=== PATIENT | female | born 1940 | race Two or more races ===

== ENCOUNTER → 2016-06-06 | Outpatient (CLI) | payer MEDICARE, OTHER ==
[~2016-06-06] MED LIST: ASPI81CH43; ATO40T; GLYB5TAB66; LISI-709; SITA50TA13; VERA240T
[2016-06-06 11:23] LABS: Basophils # (auto) 0 uL; Basophils % (auto) 0.6 % (0.0-2.0); Eosinophils # (auto) 0.1 uL; Eosinophils % (auto) 1.3 % (0.0-7.0); Hemoglobin 12.5 g/dL (12.2-16.2); Lymphocytes # (auto) 1.6 uL; Lymphocytes % (auto) 23.3 % (10.0-50.0); Mean Corpuscular Hemoglobin 28.6 pg (28.0-32.0); Mean Corpuscular Hgb Conc. 32.9 g/dL (32.0-36.0); Mean Corpuscular Volume 86.9 fL (80.0-100.0); Mean Platelet Volume 7.9 fL (7.4-10.4); Monocytes # (auto) 0.3 uL; Monocytes % (auto) 4.8 % (0.0-12.0); Neutrophils # (auto) 4.7 uL; Platelet Count (auto) 307 10^3/uL (140-450); Red Cell Distribution Width 14.2 % (11.6-16.0); White Blood Cell 6.7 10^3/uL (4.4-10.8)
== END | disposition home or self-care (01) ==
LOC: LAB 10:39
PROVIDERS: ATTEND Internal Medicine
DX: E11.9 Type 2 diabetes mellitus without complications (principal)
CPT/HCPCS: 36415; 82607; 83036; 83540; 85025; 86160; 86225; 86235; 86376; 86431

== ENCOUNTER → 2016-11-01 | Outpatient (CLI) | payer MEDICARE, OTHER, BC ==
[2016-11-01 11:53] LABS: Albumin 3.8 g/dL (3.4-5.0); BUN/Creatinine Ratio 32.1; Bilirubin, Total 0.3 mg/dL (0.2-1.0); Calcium 8.9 mg/dL (8.5-10.1); Potassium 3.8 mmol/L (3.5-5.1); Total Protein 7.1 g/dL (6.4-8.2)
== END | disposition home or self-care (01) ==
LOC: LAB 09:31
PROVIDERS: ATTEND Internal Medicine
DX: E11.9 Type 2 diabetes mellitus without complications (principal); I10 Essential (primary) hypertension
CPT/HCPCS: 36415; 80053; 83036

== ENCOUNTER → 2017-06-20 | Outpatient (CLI) | payer MEDICARE, OTHER, BC ==
[2017-06-20 10:14] LABS: Basophils # (auto) 0.1 uL; Basophils % (auto) 0.7 % (0.0-2.0); Eosinophils # (auto) 0 uL; Eosinophils % (auto) 0.7 % (0.0-7.0); Hematocrit 41.5 % (36.0-46.0); Hemoglobin 13.6 g/dL (12.2-16.2); Lymphocytes # (auto) 1.5 uL; Lymphocytes % (auto) 20.8 % (10.0-50.0); Mean Corpuscular Hemoglobin 28.5 pg (28.0-32.0); Mean Corpuscular Hgb Conc. 32.8 g/dL (32.0-36.0); Mean Corpuscular Volume 86.9 fL (80.0-100.0); Monocytes # (auto) 0.4 uL; Monocytes % (auto) 5.1 % (0.0-12.0); Neutrophils # (auto) 5.1 uL; Neutrophils % (auto) 72.7 % (37.0-80.0); Nucleated Red Blood Cells % 0.1 %; Platelet Count (auto) 296 10^3/uL (140-450); Red Blood Cells 4.77 10^6/uL (4.0-5.20); Red Cell Distribution Width 14.9 % (11.8-14.3)
[2017-06-20 10:21] LABS: Urine Bacteria NONE SEEN /hpf (None Seen); Urine Blood Negative /uL (Negative); Urine Mucus FEW (None Seen); Urine Specific Gravity 1.017 (1.001-1.035); Urine WBC 1 /hpf (0 - 5)
[2017-06-20 11:16] LABS: Albumin 4.2 g/dL (3.4-5.0); BUN/Creatinine Ratio 22.2; Bilirubin, Total 0.4 mg/dL (0.2-1.0); Calcium 9.5 mg/dL (8.5-10.1); Free T4 (Free Thyroxine) 1.32 ng/dL (0.89-1.76); Potassium 3.9 mmol/L (3.5-5.1); Total Protein 7.8 g/dL (6.4-8.2)
== END | disposition home or self-care (01) ==
LOC: LAB 09:52
PROVIDERS: ATTEND Internal Medicine
DX: Z12.11 Encounter for screening for malignant neoplasm of colon (principal); I10 Essential (primary) hypertension; E11.9 Type 2 diabetes mellitus without complications
CPT/HCPCS: 36415; 80053; 80061; 81001; 82043; 82607; 83036; 84439; 84443; 85025; 85652

== ENCOUNTER → 2018-05-13 | Outpatient (CLI) | payer MEDICARE, OTHER ==
[2018-05-13 10:47] LABS: Albumin 4.2 g/dL (3.4-5.0); Calcium 9.7 mg/dL (8.5-10.1)
[2018-05-13 10:51] LABS: BUN/Creatinine Ratio 26.6; Bilirubin, Total 0.4 mg/dL (0.2-1.0); Total Protein 7.7 g/dL (6.4-8.2)
== END | disposition home or self-care (01) ==
LOC: LAB 10:14
PROVIDERS: ATTEND Internal Medicine
DX: E11.9 Type 2 diabetes mellitus without complications (principal); E78.5 Hyperlipidemia, unspecified
CPT/HCPCS: 36415; 80053; 80061; 83036

== ENCOUNTER 2018-06-03 20:14 | Emergency (ER) | payer MEDICARE, OTHER ==
[~2018-06-03] VITALS: Ht 160 cm; Wt 67.1 kg
[2018-06-03 21:02] LABS: Basophils # (auto) 0 uL; Basophils % (auto) 0.7 % (0.0-2.0); Eosinophils # (auto) 0.1 uL; Eosinophils % (auto) 0.9 % (0.0-7.0); Hemoglobin 12.6 g/dL (12.2-16.2); Lymphocytes # (auto) 1.4 uL; Lymphocytes % (auto) 20.1 % (10.0-50.0); Mean Corpuscular Hgb Conc. 33.2 g/dL (32.0-36.0); Mean Corpuscular Volume 87.3 fL (80.0-100.0); Monocytes # (auto) 0.4 uL; Monocytes % (auto) 5.4 % (0.0-12.0); Neutrophils # (auto) 5.2 uL; Neutrophils % (auto) 72.9 % (37.0-80.0); Platelet Count (auto) 283 10^3/uL (140-450); Red Blood Cells 4.35 10^6/uL (4.0-5.20); Red Cell Distribution Width 14.9 % (11.8-14.3); White Blood Cell 7.2 10^3/uL (4.4-10.8)
[2018-06-03 21:14] LABS: INR 0.94 (0.9-1.15); Partial Thromboplastin Time 28.5 sec (23.78-33.04); Prothrombin Time 10.1 sec (9.27-12.13)
[2018-06-03 21:21] LABS: Alanine Aminotransferase 29 U/L (13-56); Amylase 36 U/L (25-115); Anion Gap 8 (5-15); Aspartate Aminotransferase 25 U/L (15-37); BUN/Creatinine Ratio 17.4; Blood Urea Nitrogen 16 mg/dL (7-18); Calcium 8.9 mg/dL (8.5-10.1); Carbon Dioxide 24 mmol/L (21-32); Chloride 107 mmol/L (98-107); GFR African American 76 mL/min; GFR Non-African American 63 mL/min; Glucose 296 mg/dL (74-106); Lipase 51 U/L (73-393); Magnesium 1.9 mg/dL (1.6-2.6); Potassium 3.6 mmol/L (3.5-5.1); Sodium 139 mmol/L (136-145)
[2018-06-03 21:26] LABS: Alkaline Phosphatase 98 U/L (45-117); Bilirubin, Total 0.4 mg/dL (0.2-1.0); Total Protein 7.5 g/dL (6.4-8.2)
[2018-06-03 22:17] LABS: Urine Bacteria FEW /hpf (None Seen); Urine Blood Negative /uL (Negative); Urine Specific Gravity 1.026 (1.001-1.035); Urine WBC 2 /hpf (0 - 5)
[2018-06-04 00:59] VITALS: BP 139/78
== END 2018-06-04 03:22 | disposition left against medical advice (07) ==
LOC: ER 20:18
DX: R10.31 Right lower quadrant pain (principal); Z53.21 Procedure and treatment not carried out due to patient leaving prior to being seen by health care provider
CPT/HCPCS: 36415; 71046; 74176; 80053; 81001; 82150; 82962; 83690; 83735; 84484; 85025; 85610; 85730; 93005

== ENCOUNTER → 2018-06-09 | Outpatient (CLI) | payer MEDICARE, OTHER ==
[2018-06-09 12:29] LABS: Basophils # (auto) 0 uL; Basophils % (auto) 0.6 % (0.0-2.0); Eosinophils # (auto) 0.1 uL; Eosinophils % (auto) 1.2 % (0.0-7.0); Hemoglobin 12.8 g/dL (12.2-16.2); Lymphocytes # (auto) 1.2 uL; Lymphocytes % (auto) 18.2 % (10.0-50.0); Mean Corpuscular Hemoglobin 28.8 pg (28.0-32.0); Mean Corpuscular Hgb Conc. 32.7 g/dL (32.0-36.0); Mean Corpuscular Volume 87.9 fL (80.0-100.0); Monocytes # (auto) 0.4 uL; Monocytes % (auto) 5.9 % (0.0-12.0); Neutrophils # (auto) 4.8 uL; Neutrophils % (auto) 74.1 % (37.0-80.0); Nucleated Red Blood Cells % 0.1 %; Platelet Count (auto) 266 10^3/uL (140-450); Red Blood Cells 4.44 10^6/uL (4.0-5.20); Red Cell Distribution Width 14.3 % (11.8-14.3); White Blood Cell 6.5 10^3/uL (4.4-10.8)
[2018-06-09 12:46] LABS: Albumin 4.3 g/dL (3.4-5.0); Calcium 9.7 mg/dL (8.5-10.1); Potassium 4.2 mmol/L (3.5-5.1)
[2018-06-09 12:48] LABS: Bilirubin, Total 0.5 mg/dL (0.2-1.0); Total Protein 7.6 g/dL (6.4-8.2)
== END | disposition home or self-care (01) ==
LOC: LAB 11:24
PROVIDERS: ATTEND Internal Medicine
DX: R10.84 Generalized abdominal pain (principal)
CPT/HCPCS: 36415; 80053; 85025; 85652

== ENCOUNTER → 2018-08-01 | Day surgery (SDC) | payer MEDICARE, OTHER ==
[2018-07-29 11:08] LABS: Basophils # (auto) 0.1 uL; Basophils % (auto) 1.1 % (0.0-2.0); Eosinophils # (auto) 0.1 uL; Eosinophils % (auto) 1.4 % (0.0-7.0); Hematocrit 40.5 % (36.0-46.0); Hemoglobin 13.4 g/dL (12.2-16.2); Lymphocytes # (auto) 1.7 uL; Lymphocytes % (auto) 21.2 % (10.0-50.0); Mean Corpuscular Hemoglobin 28.9 pg (28.0-32.0); Mean Corpuscular Hgb Conc. 33.1 g/dL (32.0-36.0); Mean Corpuscular Volume 87.3 fL (80.0-100.0); Monocytes # (auto) 0.5 uL; Monocytes % (auto) 6.9 % (0.0-12.0); Neutrophils # (auto) 5.5 uL; Neutrophils % (auto) 69.4 % (37.0-80.0); Platelet Count (auto) 275 10^3/uL (140-450); Red Blood Cells 4.63 10^6/uL (4.0-5.20); Red Cell Distribution Width 14.1 % (11.8-14.3); White Blood Cell 7.9 10^3/uL (4.4-10.8)
[2018-07-29 11:26] LABS: INR 0.93 (0.9-1.15); Partial Thromboplastin Time 28.9 sec (23.64-32.05)
[~2018-08-01] VITALS: Ht 160 cm; Wt 64.9 kg
[~2018-08-01] MED LIST changes: +LIDOCAINE VISCOUS 2% 15ML UD ONE; -LISI-709; +LOSA25TA40 PO; +MIDAZOLAM HCL 5 MG/ML-1ML VIAL ONE; +SODIUM CHLORIDE LOCK 10 ML ONE; +diphenhdrAMINE HCL 50 MG/1 ML VL ONE; +fentaNYL CITRATE 100 MCG/2 ML VL ONE
[2018-08-01 11:27] VITALS: BP 115/79
== END | disposition home or self-care (01) ==
LOC: GI 09:03
PROVIDERS: ATTEND Internal Medicine Gastroenterology
DX: K29.50 Unspecified chronic gastritis without bleeding (principal); I10 Essential (primary) hypertension; E11.9 Type 2 diabetes mellitus without complications; M19.90 Unspecified osteoarthritis, unspecified site; Z79.84 Long term (current) use of oral hypoglycemic drugs; Z79.899 Other long term (current) drug therapy; Z98.891 History of uterine scar from previous surgery; Z96.643 Presence of artificial hip joint, bilateral; Z98.890 Other specified postprocedural states
CPT/HCPCS: 36415; 43239; 85025; 85610; 85730; J1200; J2250; J3010; J7030

== ENCOUNTER → 2018-08-19 | Outpatient (CLI) | payer MEDICARE, BC, OTHER ==
[~2018-08-19] MED LIST changes: -LIDOCAINE VISCOUS 2% 15ML UD ONE; -MIDAZOLAM HCL 5 MG/ML-1ML VIAL ONE; -SODIUM CHLORIDE LOCK 10 ML ONE; -diphenhdrAMINE HCL 50 MG/1 ML VL ONE; -fentaNYL CITRATE 100 MCG/2 ML VL ONE
== END | disposition home or self-care (01) ==
LOC: LAB 11:39
PROVIDERS: ATTEND Internal Medicine Gastroenterology
DX: Z01.812 Encounter for preprocedural laboratory examination (principal)
CPT/HCPCS: 36415; 82565; 84520

== ENCOUNTER → 2018-10-02 | Outpatient (CLI) | payer MEDICARE, BC ==
[~2018-10-02] MED LIST changes: +LOSA25TA38 PO; -LOSA25TA40 PO
== END | disposition home or self-care (01) ==
LOC: XY 08:22
PROVIDERS: ATTEND Internal Medicine Gastroenterology
DX: R10.10 Upper abdominal pain, unspecified (principal); G24.9 Dystonia, unspecified
CPT/HCPCS: 78226; A9537

== ENCOUNTER 2019-01-07 10:43 | Inpatient (IN) | payer MEDICARE, OTHER ==
[2018-12-15 13:53] LABS: Basophils # (auto) 0.1 uL; Basophils % (auto) 0.8 % (0.0-2.0); Eosinophils # (auto) 0.1 uL; Eosinophils % (auto) 0.8 % (0.0-7.0); Hematocrit 38.3 % (36.0-46.0); Hemoglobin 12.9 g/dL (12.2-16.2); Lymphocytes # (auto) 2.1 uL; Lymphocytes % (auto) 26.2 % (10.0-50.0); Mean Corpuscular Hemoglobin 29.4 pg (28.0-32.0); Mean Corpuscular Hgb Conc. 33.7 g/dL (32.0-36.0); Mean Corpuscular Volume 87.2 fL (80.0-100.0); Monocytes # (auto) 0.5 uL; Neutrophils # (auto) 5.3 uL; Neutrophils % (auto) 66.2 % (37.0-80.0); Platelet Count (auto) 258 10^3/uL (140-450); Red Cell Distribution Width 14.1 % (11.8-14.3)
[2018-12-15 14:00] LABS: Urine Bacteria NONE SEEN /hpf (None Seen); Urine Blood Negative /uL (Negative); Urine Mucus FEW (None Seen); Urine Specific Gravity 1.015 (1.001-1.035); Urine WBC 2 /hpf (0 - 5)
[2018-12-15 14:04] LABS: Albumin 4.2 g/dL (3.4-5.0); Calcium 9.1 mg/dL (8.5-10.1); Potassium 3.8 mmol/L (3.5-5.1)
[2018-12-15 14:07] LABS: BUN/Creatinine Ratio 29.2; Bilirubin, Total 0.4 mg/dL (0.2-1.0); Total Protein 7.5 g/dL (6.4-8.2)
[2018-12-15 14:09] LABS: INR 0.93 (0.9-1.15); Partial Thromboplastin Time 29.7 sec (23.64-32.05)
[2019-01-05 11:34] LABS: Basophils # (auto) 0.1 uL; Basophils % (auto) 0.8 % (0.0-2.0); Eosinophils # (auto) 0 uL; Eosinophils % (auto) 0.5 % (0.0-7.0); Hemoglobin 12.8 g/dL (12.2-16.2); Lymphocytes # (auto) 1.3 uL; Lymphocytes % (auto) 17.4 % (10.0-50.0); Mean Corpuscular Hemoglobin 29.2 pg (28.0-32.0); Mean Corpuscular Hgb Conc. 33.6 g/dL (32.0-36.0); Mean Corpuscular Volume 86.9 fL (80.0-100.0); Monocytes # (auto) 0.4 uL; Monocytes % (auto) 5.2 % (0.0-12.0); Neutrophils # (auto) 5.8 uL; Neutrophils % (auto) 76.1 % (37.0-80.0); Nucleated Red Blood Cells % 0.1 %; Platelet Count (auto) 272 10^3/uL (140-450); Red Blood Cells 4.37 10^6/uL (4.0-5.20); Red Cell Distribution Width 13.9 % (11.8-14.3); White Blood Cell 7.6 10^3/uL (4.4-10.8)
[2019-01-05 11:39] LABS: Urine Bacteria NONE SEEN /hpf (None Seen); Urine Blood Negative /uL (Negative); Urine Specific Gravity 1.006 (1.001-1.035); Urine WBC <1 /hpf (0 - 5)
[2019-01-05 11:51] LABS: INR 0.95 (0.9-1.15); Partial Thromboplastin Time 28.8 sec (23.64-32.05)
[2019-01-05 12:32] LABS: Albumin 4.3 g/dL (3.4-5.0); BUN/Creatinine Ratio 28.1; Calcium 9.3 mg/dL (8.5-10.1); Potassium 3.7 mmol/L (3.5-5.1)
[2019-01-05 12:35] LABS: Bilirubin, Total 0.5 mg/dL (0.2-1.0); Total Protein 7.6 g/dL (6.4-8.2)
[~2019-01-07] VITALS: Ht 160 cm; Wt 66.1 kg
[2019-01-07] MEDS ORDERED: ceFAZolin 1GM/50ML 50 ML IV ONE (10:55)
[2019-01-07] MEDS: POVIDONE IODINE 5% TOPICAL CREAM TOP ONE ×2 (12:29→13:41)
[2019-01-07] MEDS ORDERED: ONDANSETRON HCL 4 MG/2 ML VIAL IV PRN ×2 (12:30→14:15)
[2019-01-07] MEDS ORDERED: MORPHINE SULFATE 4 MG/ML SYR/VIAL IV PRN (12:30)
[2019-01-07] MEDS ORDERED: LABETALOL HCL 5 MG/ML 4ML SYRINGE IV PRN (12:30)
[2019-01-07] MEDS ORDERED: ePHEDrine SULFATE 50 MG/ML AMP IV PRN (12:30)
[2019-01-07] MEDS ORDERED: KETOROLAC TROMETH 30 MG/ML 1ML VIAL IV ONE (12:30)
[2019-01-07] MEDS ORDERED: SUCCINYLCHOLINE CHLORIDE 20 MG/ML 10ML VIAL IV ONE (12:43)
[2019-01-07] MEDS ORDERED: MEPERIDINE HCL (25 MG/ML) 1ML VIAL ONE (12:43)
[2019-01-07] MEDS ORDERED: fentaNYL CITRATE 100 MCG/2 ML VL ONE (12:44)
[2019-01-07] MEDS ORDERED: MIDAZOLAM HCL 1MG/1ML-2 ML VIAL ONE (12:44)
[2019-01-07] MEDS ORDERED: ETOMIDATE (2MG/ML) 20ML VIAL IV ONE (14:02)
[2019-01-07] MEDS ORDERED: DexAMETHasone SOD PHOS 10MG/1ML VIAL INJ ONE (14:02)
[2019-01-07] MEDS: HYDROmorphone HCL 2 MG/ML VL IV PRN ×2 (14:14→14:26)
[2019-01-07] MEDS ORDERED: MORPHINE SULF INJ 2 MG/ML SYRINGE 1ML IV PRN (14:15)
[2019-01-07] MEDS ORDERED: DEXTROSE (50%) 50ML SYRG IV PRN (14:15)
[2019-01-07] MEDS ORDERED: NEOSTIGMINE 1 MG/ML INJ (10mg/10ML VIAL) IM ONE (16:19)
[2019-01-07] MEDS ORDERED: GLYCOPYRROLATE 0.2 MG/ML 1ML VIAL IV ONE (16:19)
[2019-01-07] MEDS ORDERED: PHENYLEPHRINE HCL 10 MG/ML VL IV ONE (16:19)
[2019-01-07] MEDS ORDERED: ceFAZolin 1GM VL IV ONE (16:19)
[2019-01-07 16:34] VITALS: BP 89/51
[2019-01-07] MEDS: SODIUM CHLORIDE 0.9% 1,000 ML IV SCH (16:42)
[2019-01-07] MEDS: InsuLIN REG 1unit/0.01ml Soln (100units/ml) SC SCH ×2 (16:54→21:21)
[2019-01-07] MEDS: ACCU-CHEK COMFORT CURVE STRIP VI SCH ×2 (16:55→21:21)
--- NOTE | 2019-01-07 20:00 | NUR ---
Opening Shift Note Assumed care of patient, awake and alert. No S/S of distress/SOB or pain. Instructed on POC and to call for assist PRN, will continue to monitor for changes Q1hr and PRN. Dressing is clean dry and intact. Abdominal binder in place and patient tolerating well.
[2019-01-07 22:00] VITALS: BP 97/59
[2019-01-08] MEDS: HYDROcodone-ACET 5/325MG TAB PO PRN ×2 (02:46→21:23)
[2019-01-08] MEDS: SODIUM CHLORIDE 0.9% 1,000 ML IV SCH (03:35)
[2019-01-08 05:00] VITALS: BP 119/74
[2019-01-08] MEDS: ACCU-CHEK COMFORT CURVE STRIP VI SCH ×4 (06:26→21:22)
[2019-01-08] MEDS: InsuLIN REG 1unit/0.01ml Soln (100units/ml) SC SCH ×4 (06:27→21:22)
[2019-01-08 06:43] LABS: Basophils # (auto) 0 uL; Basophils % (auto) 0.1 % (0.0-2.0); Eosinophils # (auto) 0 uL; Hematocrit 34.2 % (36.0-46.0); Hemoglobin 11.6 g/dL (12.2-16.2); Lymphocytes % (auto) 9.4 % (10.0-50.0); Mean Corpuscular Hemoglobin 29.7 pg (28.0-32.0); Mean Corpuscular Volume 87.3 fL (80.0-100.0); Monocytes # (auto) 0.5 uL; Monocytes % (auto) 4.6 % (0.0-12.0); Neutrophils # (auto) 9.2 uL; Neutrophils % (auto) 85.9 % (37.0-80.0); Platelet Count (auto) 249 10^3/uL (140-450); Red Blood Cells 3.91 10^6/uL (4.0-5.20); Red Cell Distribution Width 14.1 % (11.8-14.3); White Blood Cell 10.7 10^3/uL (4.4-10.8)
[2019-01-08 06:49] LABS: Albumin 3.6 g/dL (3.4-5.0); BUN/Creatinine Ratio 36.2; Calcium 8.5 mg/dL (8.5-10.1); Potassium 4.1 mmol/L (3.5-5.1)
[2019-01-08 06:51] LABS: Bilirubin, Total 0.4 mg/dL (0.2-1.0); Total Protein 6.4 g/dL (6.4-8.2)
[2019-01-08 08:00] VITALS: BP 115/65
[2019-01-08 09:00] VITALS: BP 115/65
[2019-01-08 12:38] VITALS: BP 107/66
[2019-01-08 22:00] VITALS: BP 130/73
--- NOTE | 2019-01-09 03:20 | NUR ---
PT CARE RESUMED REPORT RECEIVED FROM VENITA RN, PT CURRENTLY SLEEPING, BREATHING EVEN AND UNLABORED, CURRENTLY ON ROOM AIR, EASILY AWAKENED VIA VERBAL STIMULI, NO CURRENT C/O PAIN OR ANY OTHER DISCOMFORT, CALL LIGHT WITHIN REACH, BED ALARM ON, CONT CARE
[2019-01-09 05:00] VITALS: BP 116/62
[2019-01-09] MEDS: InsuLIN REG 1unit/0.01ml Soln (100units/ml) SC SCH ×2 (07:00→11:30)
[2019-01-09] MEDS: ACCU-CHEK COMFORT CURVE STRIP VI SCH ×2 (07:10→11:47)
[2019-01-09 08:22] VITALS: BP 138/70
[2019-01-09] MEDS: HYDROcodone-ACET 5/325MG TAB PO PRN (09:42)
[2019-01-09 13:00] VITALS: BP 126/70
--- NOTE | 2019-01-09 16:27 | NUR ---
DISCHARGE Discharge instructions given as ordered. Encourage to follow up with PMD as instructed. Appointment made to follow up with Dr Ferrara 01/19/2019 @ 1:30, address and contact information provided. All questions and concerns addressed. Patient verbalized understanding. Medication reconciliation form completed and copy given to patient. IV removed with catheter intact, pressure dressing applied. Patient taken to vehicle via wheelchair with all personal belongings, accompanied by staff and family member. No distress noted at time of departure.
== END 2019-01-09 16:20 | disposition home or self-care (01) | DRG 419 ==
LOC: SUR 10:43 → TELE-WESTW 15:25 → WEST WING 19:20
PROVIDERS: ADMIT Surgery; ATTEND Internal Medicine
PROC: 0FT44ZZ Resection of Gallbladder, Percutaneous Endoscopic Approach (ICD-10-PCS; principal; 2019-01-07 12:45)
DX: K80.64 Calculus of gallbladder and bile duct with chronic cholecystitis without obstruction (principal); K82.8 Other specified diseases of gallbladder; E11.9 Type 2 diabetes mellitus without complications; I10 Essential (primary) hypertension; E78.5 Hyperlipidemia, unspecified; I25.10 Atherosclerotic heart disease of native coronary artery without angina pectoris; K43.9 Ventral hernia without obstruction or gangrene; M06.9 Rheumatoid arthritis, unspecified; Z79.899 Other long term (current) drug therapy
CPT/HCPCS: 36415; 80053; 81001; 82962; 83036; 85025; 85610; 85730; 86850; 86900; 86901; G0378; J0330; J0690; J1100; J1815; J1885; J2250; J2405

== ENCOUNTER → 2019-09-02 | Outpatient (CLI) | payer MEDICARE, BC ==
[~2019-09-02] MED LIST changes: -ATO40T
[2019-09-02 10:53] LABS: Basophils # (auto) 0.1 10 ^3/uL (0-0.2); Basophils % (auto) 0.9 % (0.0-2.0); Eosinophils # (auto) 0.1 10 ^3/uL (0-0.8); Eosinophils % (auto) 1.3 % (0.0-7.0); Hematocrit 35.8 % (36.0-46.0); Hemoglobin 11.8 g/dL (12.2-16.2); Lymphocytes # (auto) 1.3 10 ^3/uL (0.4-5.4); Lymphocytes % (auto) 19.9 % (10.0-50.0); Mean Corpuscular Hemoglobin 28.4 pg (28.0-32.0); Mean Corpuscular Hgb Conc. 33.1 g/dL (32.0-36.0); Mean Corpuscular Volume 85.7 fL (80.0-100.0); Monocytes # (auto) 0.4 10 ^3/uL (0-1.3); Monocytes % (auto) 6.3 % (0.0-12.0); Neutrophils # (auto) 4.6 10 ^3/uL (1.6-8.6); Neutrophils % (auto) 71.6 % (37.0-80.0); Platelet Count (auto) 305 10^3/uL (140-450); Red Blood Cells 4.17 10^6/uL (4.0-5.20); Red Cell Distribution Width 14.5 % (11.8-14.3); White Blood Cell 6.4 10^3/uL (4.4-10.8)
[2019-09-02 11:00] LABS: Urine Bacteria NONE SEEN /hpf (None Seen); Urine Blood Negative /uL (Negative); Urine Mucus FEW (None Seen); Urine Specific Gravity 1.027 (1.001-1.035); Urine WBC 2 /hpf (0 - 5)
[2019-09-02 11:35] LABS: Free T4 (Free Thyroxine) 1.13 ng/dL (0.89-1.76)
[2019-09-02 11:56] LABS: Albumin 3.9 g/dL (3.4-5.0); Bilirubin, Total 0.5 mg/dL (0.2-1.0); Calcium 9.2 mg/dL (8.5-10.1); Total Protein 7.6 g/dL (6.4-8.2)
[2019-09-02 12:02] LABS: BUN/Creatinine Ratio 38.3
== END | disposition home or self-care (01) ==
LOC: LAB 10:25
PROVIDERS: ATTEND Internal Medicine
DX: I10 Essential (primary) hypertension (principal); E11.9 Type 2 diabetes mellitus without complications
CPT/HCPCS: 36415; 80053; 80061; 81001; 82043; 82607; 83036; 84439; 84443; 85025; 85652

== ENCOUNTER → 2019-10-07 | Outpatient (CLI) | payer MEDICARE, BC ==
[2019-10-07 14:54] LABS: Basophils # (auto) 0 10 ^3/uL (0-0.2); Basophils % (auto) 0.6 % (0.0-2.0); Eosinophils # (auto) 0.1 10 ^3/uL (0-0.8); Hemoglobin 11.9 g/dL (12.2-16.2); Lymphocytes # (auto) 1.7 10 ^3/uL (0.4-5.4); Lymphocytes % (auto) 21.5 % (10.0-50.0); Mean Corpuscular Hemoglobin 28.7 pg (28.0-32.0); Monocytes # (auto) 0.4 10 ^3/uL (0-1.3); Monocytes % (auto) 5.7 % (0.0-12.0); Neutrophils # (auto) 5.5 10 ^3/uL (1.6-8.6); Neutrophils % (auto) 71.2 % (37.0-80.0); Nucleated Red Blood Cells % 0.1 %; Platelet Count (auto) 303 10^3/uL (140-450); Red Blood Cells 4.14 10^6/uL (4.0-5.20); Red Cell Distribution Width 14.7 % (11.8-14.3); White Blood Cell 7.7 10^3/uL (4.4-10.8)
[2019-10-07 15:14] LABS: Calcium 9.6 mg/dL (8.5-10.1); Potassium 3.7 mmol/L (3.5-5.1)
[2019-10-07 15:20] LABS: BUN/Creatinine Ratio 25.8; Bilirubin, Total 0.4 mg/dL (0.2-1.0); Total Protein 7.6 g/dL (6.4-8.2)
== END | disposition home or self-care (01) ==
LOC: LAB 14:38
PROVIDERS: ATTEND Internal Medicine
DX: K57.30 Diverticulosis of large intestine without perforation or abscess without bleeding (principal)
CPT/HCPCS: 36415; 80053; 85025; 85652

== ENCOUNTER → 2019-10-20 | Outpatient (CLI) | payer MEDICARE, BC | END | disposition home or self-care (01) | LOC: LAB 13:07 | PROVIDERS: ATTEND Internal Medicine | DX: D64.9 Anemia, unspecified (principal) | CPT/HCPCS: 82270 ==

== ENCOUNTER → 2020-04-29 | Outpatient (CLI) | payer MEDICARE, BC ==
[2020-04-29 10:12] LABS: Basophils # (auto) 0.1 10 ^3/uL (0-0.2); Basophils % (auto) 0.8 % (0.0-2.0); Eosinophils # (auto) 0.1 10 ^3/uL (0-0.8); Eosinophils % (auto) 0.8 % (0.0-7.0); Hematocrit 37.9 % (36.0-46.0); Hemoglobin 12.9 g/dL (12.2-16.2); Lymphocytes # (auto) 1.4 10 ^3/uL (0.4-5.4); Lymphocytes % (auto) 19.7 % (10.0-50.0); Mean Corpuscular Hemoglobin 29.3 pg (28.0-32.0); Mean Corpuscular Volume 86.1 fL (80.0-100.0); Monocytes # (auto) 0.4 10 ^3/uL (0-1.3); Monocytes % (auto) 4.9 % (0.0-12.0); Neutrophils # (auto) 5.4 10 ^3/uL (1.6-8.6); Neutrophils % (auto) 73.8 % (37.0-80.0); Nucleated Red Blood Cells % 0.1 %; Platelet Count (auto) 246 10^3/uL (140-450); Red Cell Distribution Width 14.1 % (11.8-14.3); White Blood Cell 7.3 10^3/uL (4.4-10.8)
== END | disposition home or self-care (01) ==
LOC: LAB 09:54
PROVIDERS: ATTEND Internal Medicine
DX: E11.9 Type 2 diabetes mellitus without complications (principal); D64.9 Anemia, unspecified
CPT/HCPCS: 36415; 82607; 83036; 83540; 83615; 85025

== ENCOUNTER → 2020-07-21 | Outpatient (CLI) | payer MEDICARE, BC ==
[2020-07-21 11:20] LABS: Potassium 4.2 mmol/L (3.5-5.1)
[2020-07-21 11:33] LABS: Albumin 4.1 g/dL (3.4-5.0); BUN/Creatinine Ratio 40.6; Bilirubin, Total 0.4 mg/dL (0.2-1.0); Calcium 9.3 mg/dL (8.5-10.1); Total Protein 7.3 g/dL (6.4-8.2)
== END | disposition home or self-care (01) ==
LOC: LAB 10:17
PROVIDERS: ATTEND Internal Medicine
DX: E11.9 Type 2 diabetes mellitus without complications (principal)
CPT/HCPCS: 36415; 80053; 83036

== ENCOUNTER → 2020-10-27 | Outpatient (CLI) | payer MEDICARE, OTHER ==
[2020-10-27 10:13] LABS: Basophils # (auto) 0.1 10 ^3/uL (0-0.2); Basophils % (auto) 0.8 % (0.0-2.0); Eosinophils # (auto) 0.1 10 ^3/uL (0-0.8); Eosinophils % (auto) 0.8 % (0.0-7.0); Hematocrit 38.1 % (36.0-46.0); Hemoglobin 12.6 g/dL (12.2-16.2); Lymphocytes # (auto) 1.5 10 ^3/uL (0.4-5.4); Lymphocytes % (auto) 21.1 % (10.0-50.0); Mean Corpuscular Hemoglobin 28.6 pg (28.0-32.0); Mean Corpuscular Hgb Conc. 33.2 g/dL (32.0-36.0); Mean Corpuscular Volume 86.1 fL (80.0-100.0); Monocytes # (auto) 0.4 10 ^3/uL (0-1.3); Monocytes % (auto) 5.7 % (0.0-12.0); Neutrophils # (auto) 5.1 10 ^3/uL (1.6-8.6); Neutrophils % (auto) 71.6 % (37.0-80.0); Red Blood Cells 4.43 10^6/uL (4.0-5.20); Red Cell Distribution Width 14.3 % (11.8-14.3); White Blood Cell 7.2 10^3/uL (4.4-10.8)
[2020-10-27 10:19] LABS: Urine Bacteria NONE SEEN /hpf (None Seen); Urine Blood Negative /uL (Negative); Urine Specific Gravity 1.008 (1.001-1.035); Urine WBC <1 /hpf (0 - 5)
[2020-10-27 11:04] LABS: Albumin 4.2 g/dL (3.4-5.0); Potassium 3.9 mmol/L (3.5-5.1)
[2020-10-27 11:14] LABS: Bilirubin, Total 0.4 mg/dL (0.2-1.0); Calcium 9.7 mg/dL (8.5-10.1); Total Protein 7.8 g/dL (6.4-8.2)
== END | disposition home or self-care (01) ==
LOC: LAB 09:59
PROVIDERS: ATTEND Internal Medicine
DX: E11.9 Type 2 diabetes mellitus without complications (principal); I10 Essential (primary) hypertension
CPT/HCPCS: 36415; 80053; 80061; 81001; 82043; 83036; 84439; 84443; 85025; 85652

== ENCOUNTER 2020-11-15 14:46 | Inpatient (IN) | payer MEDICARE, OTHER ==
[~2020-11-15] VITALS: Ht 160 cm; Wt 57.8 kg
[2020-11-15] MEDS ORDERED: HYDROcodone-ACET 5/325MG TAB PO ONE (15:00)
[2020-11-15] MEDS ORDERED: IOHEXOL 350 MG/ML 100ML IJ ONE (15:05)
[2020-11-15 15:35] LABS: Basophils # (auto) 0 10 ^3/uL (0-0.2); Basophils % (auto) 0.3 % (0.0-2.0); Eosinophils # (auto) 0.1 10 ^3/uL (0-0.8); Eosinophils % (auto) 0.7 % (0.0-7.0); Hematocrit 27.5 % (36.0-46.0); Hemoglobin 9.3 g/dL (12.2-16.2); Lymphocytes # (auto) 1.3 10 ^3/uL (0.4-5.4); Lymphocytes % (auto) 12.4 % (10.0-50.0); Mean Corpuscular Hemoglobin 29.3 pg (28.0-32.0); Mean Corpuscular Hgb Conc. 33.8 g/dL (32.0-36.0); Mean Corpuscular Volume 86.7 fL (80.0-100.0); Monocytes # (auto) 0.7 10 ^3/uL (0-1.3); Monocytes % (auto) 6.5 % (0.0-12.0); Neutrophils # (auto) 8.1 10 ^3/uL (1.6-8.6); Neutrophils % (auto) 80.1 % (37.0-80.0); Nucleated Red Blood Cells % 0.1 %; Red Blood Cells 3.18 10^6/uL (4.0-5.20); Red Cell Distribution Width 14.5 % (11.8-14.3); White Blood Cell 10.1 10^3/uL (4.4-10.8)
[2020-11-15 15:52] LABS: Albumin 2.9 g/dL (3.4-5.0); Anion Gap 11 (5-15); Blood Urea Nitrogen 18 mg/dL (7-18); Calcium 9.1 mg/dL (8.5-10.1); Carbon Dioxide 24 mmol/L (21-32); Chloride 102 mmol/L (98-107); Glucose 249 mg/dL (74-106); Potassium 3.8 mmol/L (3.5-5.1); Sodium 137 mmol/L (136-145)
[2020-11-15 16:08] LABS: Alanine Aminotransferase 24 U/L (13-56); Aspartate Aminotransferase 15 U/L (15-37); Bilirubin, Total 0.9 mg/dL (0.2-1.0); GFR African American 128 mL/min; GFR Non-African American 106 mL/min; Total Protein 6.7 g/dL (6.4-8.2)
[2020-11-15 16:42] LABS: Alkaline Phosphatase 86 U/L (45-117)
[2020-11-15] MEDS ORDERED: NITROGLYCERIN 0.4 MG SL TAB SL PRN (18:15)
[2020-11-15] MEDS ORDERED: ONDANSETRON HCL 4 MG/2 ML VIAL IV PRN (18:15)
[2020-11-15] MEDS ORDERED: MORPHINE SULFATE INJECTION 2 MG/ML SYRG IV PRN (18:15)
[2020-11-15] MEDS ORDERED: DEXTROSE (50%) 50ML SYRG IV PRN (18:15)
[2020-11-15] MEDS: MORPHINE SULFATE INJECTION 2 MG/ML SYRG IV PRN (21:28)
[2020-11-15] MEDS: ACCU-CHEK COMFORT CURVE STRIP VI SCH (22:30)
[2020-11-15] MEDS: InsuLIN REG 1unit/0.01ml Soln (100units/ml) SC SCH (22:35)
[2020-11-16 07:12] LABS: Hematocrit 27.5 % (36.0-46.0); Hemoglobin 9.4 g/dL (12.2-16.2)
[2020-11-16] MEDS: ACCU-CHEK COMFORT CURVE STRIP VI SCH ×4 (08:03→22:00)
[2020-11-16] MEDS: InsuLIN REG 1unit/0.01ml Soln (100units/ml) SC SCH ×4 (08:30→22:00)
[2020-11-16] MEDS: LOSARTAN POTASSIUM 25 MG TAB PO SCH (10:00)
[2020-11-16] MEDS: MORPHINE SULFATE INJECTION 2 MG/ML SYRG IV PRN ×2 (12:21→21:46)
[2020-11-16 12:56] LABS: % Iron Saturation 13.9 % (15-50)
[2020-11-16 13:00] LABS: INR 1.01 (0.9-1.15); Partial Thromboplastin Time 24.2 sec (23.6-33.0)
[2020-11-16 21:25] VITALS: BP 128/77
[2020-11-16 22:00] VITALS: BP 128/77
[2020-11-17] VITALS (14 sets, daily range): BP systolic 102–151; BP diastolic 47–88
[2020-11-17] MEDS: InsuLIN REG 1unit/0.01ml Soln (100units/ml) SC SCH ×4 (07:00→21:28)
[2020-11-17] MEDS: ACCU-CHEK COMFORT CURVE STRIP VI SCH ×4 (07:00→21:17)
[2020-11-17 07:25] LABS: Urine Bacteria NONE SEEN /hpf (None Seen); Urine Blood 1+ /uL (Negative); Urine Mucus FEW (None Seen); Urine Specific Gravity 1.026 (1.001-1.035); Urine WBC 5 /hpf (0 - 5)
[2020-11-17] MEDS ORDERED: LOS25T PO (07:47)
[2020-11-17] MEDS ORDERED: HYDR1TAB97 PO (07:47)
[2020-11-17] MEDS: LOSARTAN POTASSIUM 25 MG TAB PO SCH (10:00)
[2020-11-17] MEDS ORDERED: NEOMYCIN-BACITRACIN-POLYM 15GM TOP OINT TOP ONE (11:44)
[2020-11-17] MEDS ORDERED: ceFAZolin 1GM/50ML 100 ML IV ONE (11:57)
[2020-11-17] MEDS ORDERED: BUPIVACAINE 0.25% INJ 50ML VIAL ONE (12:07)
[2020-11-17] MEDS ORDERED: fentaNYL CITRATE 100 MCG/2 ML VL ONE (12:32)
[2020-11-17] MEDS ORDERED: MIDAZOLAM HCL 2MG/2ML 2ml VIAL (1mg/ml) ONE (12:32)
[2020-11-17] MEDS ORDERED: TETRACAINE 1% INJ 2 ML VIAL IJ ONE (12:41)
[2020-11-17] MEDS ORDERED: MORPHINE SULF PF 2 MG/2 ML SYRG ONE (12:48)
[2020-11-17] MEDS ORDERED: ceFAZolin 1GM VL ONE ×2 (13:16→13:46)
[2020-11-17] MEDS ORDERED: DexAMETHasone SOD PHOS 10MG/1ML VIAL INJ IV PRN (14:30)
[2020-11-17] MEDS ORDERED: diphenhdrAMINE HCL 50 MG/1 ML VL IV PRN (14:30)
[2020-11-17] MEDS ORDERED: HYDROmorphone HCL 2 MG/ML VL IV PRN (14:30)
[2020-11-17] MEDS ORDERED: NALOXONE HCL 0.4 MG/ML VIAL IV PRN (14:30)
[2020-11-17] MEDS ORDERED: NALBUPHINE HCL 10 MG/1ml INJECTION SUBCUT ONE (14:30)
[2020-11-17] MEDS ORDERED: ONDANSETRON HCL 4 MG/2 ML VIAL IV PRN (14:30)
[2020-11-17] MEDS: MORPHINE SULFATE INJECTION 2 MG/ML SYRG IV PRN (17:19)
[2020-11-17] MEDS: DOCUSATE SOD 100 MG CAP PO PRN (21:17)
[2020-11-18] VITALS (17 sets, daily range): BP systolic 93–117; BP diastolic 40–66
[2020-11-18] MEDS: ACCU-CHEK COMFORT CURVE STRIP VI SCH ×4 (06:35→21:28)
[2020-11-18] MEDS: InsuLIN REG 1unit/0.01ml Soln (100units/ml) SC SCH ×4 (06:38→21:28)
[2020-11-18 07:18] LABS: Calcium 8.4 mg/dL (8.5-10.1); Potassium 4.1 mmol/L (3.5-5.1)
[2020-11-18 07:20] LABS: BUN/Creatinine Ratio 31.8
[2020-11-18 08:01] LABS: Basophils # (auto) 0.1 10 ^3/uL (0-0.2); Basophils % (auto) 0.6 % (0.0-2.0); Eosinophils # (auto) 0 10 ^3/uL (0-0.8); Eosinophils % (auto) 0.2 % (0.0-7.0); Hematocrit 23.7 % (36.0-46.0); Hemoglobin 8.2 g/dL (12.2-16.2); Lymphocytes # (auto) 1.2 10 ^3/uL (0.4-5.4); Lymphocytes % (auto) 11.4 % (10.0-50.0); Mean Corpuscular Hemoglobin 30.1 pg (28.0-32.0); Mean Corpuscular Hgb Conc. 34.7 g/dL (32.0-36.0); Mean Corpuscular Volume 86.8 fL (80.0-100.0); Monocytes % (auto) 9.3 % (0.0-12.0); Neutrophils # (auto) 8.1 10 ^3/uL (1.6-8.6); Neutrophils % (auto) 78.5 % (37.0-80.0); Nucleated Red Blood Cells % 0.1 %; Red Blood Cells 2.73 10^6/uL (4.0-5.20); Red Cell Distribution Width 14.7 % (11.8-14.3); White Blood Cell 10.3 10^3/uL (4.4-10.8)
[2020-11-18] MEDS: ACETAMINOPHEN 500 MG TAB PO PRN (08:38)
[2020-11-18] MEDS ORDERED: cefTRIAXone 1GM/50ML D5W 50 ML IV ONE (12:00)
[2020-11-18] MEDS: MORPHINE SULFATE INJECTION 2 MG/ML SYRG IV PRN (13:34)
[2020-11-18] MEDS: CLINDAMYCIN 600MG IV 50 ML IV SCH ×2 (13:54→21:27)
[2020-11-18] MEDS ORDERED: SODIUM CHLORIDE 0.9% 1,000 ML IV ONE (15:15)
[2020-11-18] MEDS: HYDROcodone-ACET 5/325MG TAB PO PRN (15:40)
[2020-11-18 16:00] LABS: Urine Bacteria NONE SEEN /hpf (None Seen); Urine Blood 2+ /uL (Negative); Urine Mucus FEW (None Seen); Urine Specific Gravity 1.016 (1.001-1.035); Urine WBC 2 /hpf (0 - 5)
[2020-11-18] MEDS: SODIUM FERR GLUC 62.5MG/5ML 125 MG in SODIUM CHL 0.9% 100 ML IV SCH (17:08)
[2020-11-18] MEDS: cefTRIAXone 1GM/50ML D5W 50 ML IV SCH (21:24)
[2020-11-19] MEDS: HYDROcodone-ACET 5/325MG TAB PO PRN (04:24)
[2020-11-19 05:00] VITALS: BP 107/58
[2020-11-19] MEDS: CLINDAMYCIN 600MG IV 50 ML IV SCH ×3 (05:48→22:07)
[2020-11-19] MEDS: ACCU-CHEK COMFORT CURVE STRIP VI SCH ×4 (06:40→22:08)
[2020-11-19] MEDS: InsuLIN REG 1unit/0.01ml Soln (100units/ml) SC SCH ×4 (06:41→22:20)
[2020-11-19] MEDS: DOCUSATE SOD 100 MG CAP PO PRN (06:41)
[2020-11-19 08:30] VITALS: BP 85/48
[2020-11-19] MEDS ORDERED: cefTRIAXone 1GM/50ML D5W 50 ML IV SCH (09:00)
[2020-11-19 11:51] VITALS: BP 104/58
[2020-11-19] MEDS: cefTRIAXone 1GM/50ML D5W 50 ML IV SCH ×2 (11:51→23:20)
[2020-11-19] MEDS: MORPHINE SULFATE INJECTION 2 MG/ML SYRG IV PRN ×2 (11:52→20:19)
[2020-11-19 13:00] VITALS: BP 114/59
[2020-11-19] MEDS: SODIUM FERR GLUC 62.5MG/5ML 125 MG in SODIUM CHL 0.9% 100 ML IV SCH (14:00)
[2020-11-19] MEDS ORDERED: FUROSEMIDE 20 MG/2 ML VIAL IV ONE (15:00)
[2020-11-19 17:23] VITALS: BP 119/58
[2020-11-19 21:00] VITALS: BP 101/52
[2020-11-20 05:03] VITALS: BP 107/59
[2020-11-20 05:40] LABS: Basophils # (auto) 0 10 ^3/uL (0-0.2); Basophils % (auto) 0.4 % (0.0-2.0); Eosinophils # (auto) 0.1 10 ^3/uL (0-0.8); Eosinophils % (auto) 1.4 % (0.0-7.0); Hematocrit 22.6 % (36.0-46.0); Hemoglobin 7.8 g/dL (12.2-16.2); Lymphocytes % (auto) 12.2 % (10.0-50.0); Mean Corpuscular Hemoglobin 29.7 pg (28.0-32.0); Mean Corpuscular Hgb Conc. 34.5 g/dL (32.0-36.0); Mean Corpuscular Volume 86.1 fL (80.0-100.0); Monocytes # (auto) 0.6 10 ^3/uL (0-1.3); Monocytes % (auto) 6.9 % (0.0-12.0); Neutrophils # (auto) 6.7 10 ^3/uL (1.6-8.6); Neutrophils % (auto) 79.1 % (37.0-80.0); Nucleated Red Blood Cells % 0.1 %; Red Blood Cells 2.63 10^6/uL (4.0-5.20); Red Cell Distribution Width 14.9 % (11.8-14.3); White Blood Cell 8.5 10^3/uL (4.4-10.8)
[2020-11-20 05:51] LABS: Potassium 3.7 mmol/L (3.5-5.1)
[2020-11-20] MEDS: CLINDAMYCIN 600MG IV 50 ML IV SCH ×3 (05:55→21:37)
[2020-11-20 06:03] LABS: BUN/Creatinine Ratio 23.7; Bilirubin, Total 0.4 mg/dL (0.2-1.0); Calcium 8.6 mg/dL (8.5-10.1); Total Protein 5.9 g/dL (6.4-8.2)
[2020-11-20] MEDS: ACCU-CHEK COMFORT CURVE STRIP VI SCH ×4 (07:12→21:37)
[2020-11-20] MEDS: InsuLIN REG 1unit/0.01ml Soln (100units/ml) SC SCH ×4 (07:13→22:00)
[2020-11-20 09:00] VITALS: BP 104/60
[2020-11-20] MEDS ORDERED: FUROSEMIDE 20 MG/2 ML VIAL IV SCH (10:00)
[2020-11-20] MEDS: MORPHINE SULFATE INJECTION 2 MG/ML SYRG IV PRN ×3 (10:44→21:38)
[2020-11-20] MEDS: cefTRIAXone 1GM/50ML D5W 50 ML IV SCH ×2 (10:48→23:00)
[2020-11-20] MEDS: DOCUSATE SOD 100 MG CAP PO PRN (10:53)
[2020-11-20 12:54] VITALS: BP 92/60
[2020-11-20] MEDS: SODIUM FERR GLUC 62.5MG/5ML 125 MG in SODIUM CHL 0.9% 100 ML IV SCH (13:01)
[2020-11-20 17:09] VITALS: BP 126/64
[2020-11-20 20:00] VITALS: BP 108/56
[2020-11-20 23:45] VITALS: BP 108/56
[2020-11-21 05:28] VITALS: BP 118/61
[2020-11-21] MEDS: CLINDAMYCIN 600MG IV 50 ML IV SCH ×3 (05:30→22:12)
[2020-11-21 05:54] LABS: Basophils # (auto) 0.1 10 ^3/uL (0-0.2); Eosinophils # (auto) 0.1 10 ^3/uL (0-0.8); Hematocrit 23.6 % (36.0-46.0); Hemoglobin 8.1 g/dL (12.2-16.2); Mean Corpuscular Hemoglobin 29.6 pg (28.0-32.0); Neutrophils # (auto) 6.6 10 ^3/uL (1.6-8.6); White Blood Cell 8.5 10^3/uL (4.4-10.8)
[2020-11-21 05:57] LABS: Basophils % (auto) 0.8 % (0.0-2.0); Eosinophils % (auto) 1.3 % (0.0-7.0); Lymphocytes % (auto) 12.3 % (10.0-50.0); Mean Corpuscular Hgb Conc. 34.5 g/dL (32.0-36.0); Mean Corpuscular Volume 85.7 fL (80.0-100.0); Monocytes # (auto) 0.6 10 ^3/uL (0-1.3); Monocytes % (auto) 7.4 % (0.0-12.0); Neutrophils % (auto) 78.2 % (37.0-80.0); Red Blood Cells 2.75 10^6/uL (4.0-5.20)
[2020-11-21 06:11] LABS: BUN/Creatinine Ratio 18.4; Calcium 9.1 mg/dL (8.5-10.1); Potassium 3.8 mmol/L (3.5-5.1)
[2020-11-21] MEDS: ACCU-CHEK COMFORT CURVE STRIP VI SCH ×4 (06:55→21:20)
[2020-11-21] MEDS: InsuLIN REG 1unit/0.01ml Soln (100units/ml) SC SCH ×4 (06:55→21:21)
[2020-11-21 09:00] VITALS: BP 123/57
[2020-11-21] MEDS ORDERED: ENOXAPARIN SOD 40 MG/0.4 ML SYRINGE SC SCH (10:00)
[2020-11-21] MEDS: cefTRIAXone 1GM/50ML D5W 50 ML IV SCH ×2 (10:24→21:18)
[2020-11-21] MEDS: POTASSIUM EFFERVESENT TAB 25 MEQ PO SCH (10:24)
[2020-11-21] MEDS: HYDROcodone-ACET 5/325MG TAB PO PRN (10:26)
[2020-11-21] MEDS: DOCUSATE SOD 100 MG CAP PO PRN (10:27)
[2020-11-21] MEDS: MORPHINE SULFATE INJECTION 2 MG/ML SYRG IV PRN ×3 (11:11→22:13)
[2020-11-21] MEDS: FUROSEMIDE 40 MG/4 ML VIAL IV SCH (11:11)
[2020-11-21 13:00] VITALS: BP 107/57
[2020-11-21] MEDS ORDERED: ERGOCALCIFEROL 50,000 UNIT(1.25MG) CAP PO SCH (13:15)
[2020-11-21] MEDS: SODIUM FERR GLUC 62.5MG/5ML 125 MG in SODIUM CHL 0.9% 100 ML IV SCH (16:10)
[2020-11-21 17:00] VITALS: BP_SYST 101; BP_SYST 138; BP_DIAS 50; BP_DIAS 76
[2020-11-21 18:00] VITALS: BP 101/50
[2020-11-21 22:00] VITALS: BP 114/58
[2020-11-22 05:00] VITALS: BP 110/64
[2020-11-22] MEDS: CLINDAMYCIN 600MG IV 50 ML IV SCH ×3 (06:02→23:31)
[2020-11-22] MEDS: ACCU-CHEK COMFORT CURVE STRIP VI SCH ×4 (06:03→22:35)
[2020-11-22 06:05] LABS: Basophils # (auto) 0.1 10 ^3/uL (0-0.2); Eosinophils # (auto) 0.1 10 ^3/uL (0-0.8); Lymphocytes # (auto) 1.2 10 ^3/uL (0.4-5.4); Monocytes # (auto) 0.6 10 ^3/uL (0-1.3); Nucleated Red Blood Cells % 0.1 %
[2020-11-22] MEDS: InsuLIN REG 1unit/0.01ml Soln (100units/ml) SC SCH ×4 (06:07→22:47)
[2020-11-22 06:09] LABS: Basophils % (auto) 1.3 % (0.0-2.0); Hematocrit 22.3 % (36.0-46.0); Hemoglobin 7.9 g/dL (12.2-16.2); Lymphocytes % (auto) 16.8 % (10.0-50.0); Mean Corpuscular Hemoglobin 30.7 pg (28.0-32.0); Mean Corpuscular Hgb Conc. 35.3 g/dL (32.0-36.0); Mean Corpuscular Volume 87.2 fL (80.0-100.0); Monocytes % (auto) 8.6 % (0.0-12.0); Neutrophils % (auto) 71.3 % (37.0-80.0); Red Blood Cells 2.56 10^6/uL (4.0-5.20); Red Cell Distribution Width 15.1 % (11.8-14.3)
[2020-11-22 09:00] VITALS: BP 116/60
[2020-11-22] MEDS: MORPHINE SULFATE INJECTION 2 MG/ML SYRG IV PRN ×2 (09:21→13:35)
[2020-11-22] MEDS: FUROSEMIDE 40 MG/4 ML VIAL IV SCH (09:23)
[2020-11-22] MEDS: DOCUSATE SOD 100 MG CAP PO PRN (09:24)
[2020-11-22] MEDS: POTASSIUM EFFERVESENT TAB 25 MEQ PO SCH (09:24)
[2020-11-22] MEDS: cefTRIAXone 1GM/50ML D5W 50 ML IV SCH ×2 (09:25→22:36)
[2020-11-22] MEDS: ENOXAPARIN SOD 80 MG/0.8ML SYRINGE SC SCH (10:55)
[2020-11-22 13:00] VITALS: BP 118/65
[2020-11-22] MEDS: SODIUM FERR GLUC 62.5MG/5ML 125 MG in SODIUM CHL 0.9% 100 ML IV SCH (15:16)
[2020-11-22 17:00] VITALS: BP 136/65
[2020-11-22 22:00] VITALS: BP 104/59
[2020-11-23] MEDS: MORPHINE SULFATE INJECTION 2 MG/ML SYRG IV PRN ×2 (04:58→09:37)
[2020-11-23 05:00] VITALS: BP 115/64
[2020-11-23] MEDS: ACCU-CHEK COMFORT CURVE STRIP VI SCH ×4 (05:26→22:04)
[2020-11-23] MEDS: CLINDAMYCIN 600MG IV 50 ML IV SCH ×3 (05:26→22:00)
[2020-11-23] MEDS: InsuLIN REG 1unit/0.01ml Soln (100units/ml) SC SCH ×4 (05:38→22:13)
[2020-11-23 09:00] VITALS: BP 109/64
[2020-11-23] MEDS: cefTRIAXone 1GM/50ML D5W 50 ML IV SCH ×2 (09:38→21:28)
[2020-11-23] MEDS: ENOXAPARIN SOD 80 MG/0.8ML SYRINGE SC SCH (09:38)
[2020-11-23] MEDS: POTASSIUM EFFERVESENT TAB 25 MEQ PO SCH (09:38)
[2020-11-23] MEDS: FUROSEMIDE 40 MG/4 ML VIAL IV SCH (09:38)
[2020-11-23 12:03] LABS: Hematocrit 27.3 % (36.0-46.0); Hemoglobin 9.2 g/dL (12.2-16.2)
[2020-11-23] MEDS: ACETAMINOPHEN 500 MG TAB PO PRN (12:26)
[2020-11-23 13:00] VITALS: BP 110/63
[2020-11-23] MEDS: SODIUM FERR GLUC 62.5MG/5ML 125 MG in SODIUM CHL 0.9% 100 ML IV SCH (13:31)
[2020-11-23] MEDS: HYDROcodone-ACET 5/325MG TAB PO PRN ×2 (15:14→21:39)
[2020-11-23 17:00] VITALS: BP 128/69
[2020-11-23 17:32] VITALS: BP 110/63
[2020-11-23 22:00] VITALS: BP 129/66
== END 2020-11-23 22:35 | DRG 492 ==
LOC: EDBD 14:46 → ER 14:46 → TELE 18:06 → TELE-CENTR 11-16 21:25
PROVIDERS: ADMIT Nurse Practitioner Acute Care; ATTEND Internal Medicine
PROC: 0QSH04Z Reposition Left Tibia with Internal Fixation Device, Open Approach (ICD-10-PCS; 2020-11-17)
PROC: 0QSK04Z Reposition Left Fibula with Internal Fixation Device, Open Approach (ICD-10-PCS; principal; 2020-11-17 12:37)
DX: S82.842A Displaced bimalleolar fracture of left lower leg, initial encounter for closed fracture (principal); J96.00 Acute respiratory failure, unspecified whether with hypoxia or hypercapnia; J90 Pleural effusion, not elsewhere classified; J98.11 Atelectasis; E11.9 Type 2 diabetes mellitus without complications; I10 Essential (primary) hypertension; Z20.822 Contact with and (suspected) exposure to COVID-19; E88.09 Other disorders of plasma-protein metabolism, not elsewhere classified; S42.022A Displaced fracture of shaft of left clavicle, initial encounter for closed fracture; M19.90 Unspecified osteoarthritis, unspecified site; Z90.710 Acquired absence of both cervix and uterus; V89.2XXA Person injured in unspecified motor-vehicle accident, traffic, initial encounter; Y93.89 Activity, other specified; Y92.89 Other specified places as the place of occurrence of the external cause; Y99.8 Other external cause status; D50.9 Iron deficiency anemia, unspecified; R00.0 Tachycardia, unspecified
CPT/HCPCS: 36415; 71045; 71275; 73600; 73700; 76604; 80048; 80053; 81001; 82306; 82962; 83540; 83550; 83880; 84439; 84443; 84484; 85014; 85018; 85025; 85610; 85730; 86850; 86900; 86901; 87040; 87086; 87426; 93005; 93306; 93971; C1713; G0378; J0690; J0696; J1815; J2250; J2405; J3490

== ENCOUNTER → 2021-05-05 | Outpatient (CLI) | payer MEDICARE ==
[~2021-05-05] MED LIST changes: +HYDR1TAB97 PO; +LOS25T PO
[2021-05-05 13:33] LABS: Potassium 3.9 mmol/L (3.5-5.1)
[2021-05-05 13:36] LABS: Basophils # (auto) 0.1 10 ^3/uL (0-0.2); Eosinophils # (auto) 0.1 10 ^3/uL (0-0.8); Eosinophils % (auto) 0.9 % (0.0-7.0); Hematocrit 38.6 % (36.0-46.0); Hemoglobin 12.8 g/dL (12.2-16.2); Lymphocytes # (auto) 1.4 10 ^3/uL (0.4-5.4); Lymphocytes % (auto) 19.8 % (10.0-50.0); Mean Corpuscular Hemoglobin 29.7 pg (28.0-32.0); Mean Corpuscular Hgb Conc. 33.1 g/dL (32.0-36.0); Mean Corpuscular Volume 89.6 fL (80.0-100.0); Monocytes # (auto) 0.3 10 ^3/uL (0-1.3); Monocytes % (auto) 4.7 % (0.0-12.0); Neutrophils % (auto) 72.6 % (37.0-80.0); Nucleated Red Blood Cells % 0.1 %; Red Blood Cells 4.31 10^6/uL (4.0-5.20); White Blood Cell 6.9 10^3/uL (4.4-10.8)
[2021-05-05 13:37] LABS: Calcium 9.8 mg/dL (8.5-10.1)
== END | disposition home or self-care (01) ==
LOC: LAB 08:14
PROVIDERS: ATTEND Internal Medicine
DX: E11.9 Type 2 diabetes mellitus without complications (principal); I10 Essential (primary) hypertension
CPT/HCPCS: 36415; 80048; 83036; 85025

== ENCOUNTER → 2021-11-15 | Outpatient (CLI) | payer MEDICARE, BC, OTHER | END | disposition home or self-care (01) | LOC: LAB 11:11 | PROVIDERS: ATTEND Internal Medicine | DX: E11.9 Type 2 diabetes mellitus without complications (principal); I10 Essential (primary) hypertension; R68.89 Other general symptoms and signs | CPT/HCPCS: 36415; 83036; 84439; 84443 ==

== ENCOUNTER → 2022-03-30 | Outpatient (CLI) | payer MEDICARE, OTHER ==
[2022-03-30 10:12] LABS: Basophils # (auto) 0.1 10 ^3/uL (0-0.2); Eosinophils # (auto) 0.1 10 ^3/uL (0-0.8); Eosinophils % (auto) 0.9 % (0.0-7.0); Hematocrit 38.4 % (36.0-46.0); Hemoglobin 12.7 g/dL (12.2-16.2); Lymphocytes # (auto) 1.4 10 ^3/uL (0.4-5.4); Lymphocytes % (auto) 22.4 % (10.0-50.0); Mean Corpuscular Hemoglobin 29.4 pg (28.0-32.0); Mean Corpuscular Hgb Conc. 33.1 g/dL (32.0-36.0); Mean Corpuscular Volume 88.8 fL (80.0-100.0); Monocytes # (auto) 0.3 10 ^3/uL (0-1.3); Monocytes % (auto) 5.3 % (0.0-12.0); Neutrophils # (auto) 4.2 10 ^3/uL (1.6-8.6); Neutrophils % (auto) 70.4 % (37.0-80.0); Nucleated Red Blood Cells % 0.1 %; Red Blood Cells 4.33 10^6/uL (4.0-5.20); Red Cell Distribution Width 13.8 % (11.8-14.3)
[2022-03-30 11:10] LABS: BUN/Creatinine Ratio 32.3; Calcium 9.5 mg/dL (8.5-10.1)
[2022-03-30 11:15] LABS: Urine Bacteria NONE SEEN /hpf (None Seen); Urine Blood Negative /uL (Negative); Urine Hyaline Cast FEW /lpf (0 - 2); Urine Mucus FEW (None Seen); Urine WBC 1 /hpf (0 - 5)
[2022-03-30 11:16] LABS: Free T4 (Free Thyroxine) 1.12 ng/dL (0.89-1.76)
[2022-03-30 11:22] LABS: Bilirubin, Total 0.4 mg/dL (0.2-1.0); Total Protein 7.2 g/dL (6.4-8.2)
== END | disposition home or self-care (01) ==
LOC: LAB 09:54
PROVIDERS: ATTEND Internal Medicine
DX: I10 Essential (primary) hypertension (principal); E11.9 Type 2 diabetes mellitus without complications
CPT/HCPCS: 36415; 80053; 80061; 81001; 82570; 82607; 83036; 84439; 84443; 85025; 85652

== ENCOUNTER → 2022-11-28 | Outpatient (CLI) | payer MEDICARE ==
[~2022-11-28] MED LIST changes: +LOSA25TA15 PO; -LOSA25TA38 PO
[2022-11-28 09:58] LABS: Basophils # (auto) 0.1 10 ^3/uL (0-0.2); Basophils % (auto) 1.1 % (0.0-2.0); Eosinophils # (auto) 0.1 10 ^3/uL (0-0.8); Eosinophils % (auto) 1.3 % (0.0-7.0); Hematocrit 37.5 % (36.0-46.0); Hemoglobin 12.7 g/dL (12.2-16.2); Lymphocytes # (auto) 1.5 10 ^3/uL (0.4-5.4); Lymphocytes % (auto) 27.1 % (10.0-50.0); Mean Corpuscular Hemoglobin 29.8 pg (28.0-32.0); Mean Corpuscular Hgb Conc. 33.9 g/dL (32.0-36.0); Monocytes # (auto) 0.3 10 ^3/uL (0-1.3); Monocytes % (auto) 5.5 % (0.0-12.0); Neutrophils # (auto) 3.5 10 ^3/uL (1.6-8.6); Nucleated Red Blood Cells % 0.1 %; Red Blood Cells 4.26 10^6/uL (4.0-5.20); White Blood Cell 5.5 10^3/uL (4.4-10.8)
[2022-11-28 10:22] LABS: Alanine Aminotransferase 11 U/L (7-40); Alkaline Phosphatase 115 U/L (46-116); Aspartate Aminotransferase 8 U/L (13-40); BUN/Creatinine Ratio 18.4 (10.0-20.0); Blood Urea Nitrogen 16 mg/dL (9-23); Carbon Dioxide 29 mmol/L (20-30); Cholesterol 223 mg/dL (< 200); Glucose 232 mg/dL (74-106); LDL Cholesterol 139 mg/dL (< 100); Triglycerides 113 mg/dL (< 150)
[2022-11-28 10:23] LABS: Bilirubin, Total 0.5 mg/dL (0.2-1.0); HDL Cholesterol 67 mg/dL (40-59); Total Protein 7.4 g/dL (5.7-8.2)
[2022-11-28 10:36] LABS: Free T4 (Free Thyroxine) 1.2 ng/dL (0.89-1.76)
[2022-11-28 10:48] LABS: Erythrocyte Sedimentation Rate 14 mm/hr (0-20)
[2022-11-28 10:58] LABS: Anion Gap 7 (5-15); Chloride 104 mmol/L (98-107); Sodium 140 mmol/L (136-145)
== END | disposition home or self-care (01) ==
LOC: LAB 09:29
PROVIDERS: ATTEND Internal Medicine
DX: E11.21 Type 2 diabetes mellitus with diabetic nephropathy (principal); E78.5 Hyperlipidemia, unspecified
CPT/HCPCS: 36415; 80053; 80061; 82607; 83036; 84439; 84443; 85025; 85652

== ENCOUNTER → 2024-01-31 | Outpatient (CLI) | payer MEDICARE ==
[~2024-01-31] MED LIST changes: +LOSA-533 PO; -LOSA25TA15 PO
[2024-01-31 09:56] LABS: Urine Bacteria None Seen /hpf (None Seen)
[2024-01-31 10:51] LABS: Basophils # (auto) 0 10 ^3/uL (0-0.2); Basophils % (auto) 0.2 % (0.0-2.0); Eosinophils # (auto) 0 10 ^3/uL (0-0.8); Hematocrit 35.1 % (36.0-46.0); Hemoglobin 11.9 g/dL (12.2-16.2); Lymphocytes # (auto) 1.1 10 ^3/uL (0.4-5.4); Mean Corpuscular Hemoglobin 29.9 pg (28.0-32.0); Mean Corpuscular Hgb Conc. 33.9 g/dL (32.0-36.0); Mean Corpuscular Volume 88.2 fL (80.0-100.0); Monocytes # (auto) 0.5 10 ^3/uL (0-1.3); Monocytes % (auto) 5.3 % (0.0-12.0); Neutrophils # (auto) 7.1 10 ^3/uL (1.6-8.6); Neutrophils % (auto) 81.5 % (37.0-80.0); Nucleated Red Blood Cells % 0.1 %; Platelet Count (auto) 316 10^3/uL (140-450); Red Blood Cells 3.98 10^6/uL (4.0-5.20); White Blood Cell 8.7 10^3/uL (4.4-10.8)
[2024-01-31 10:52] LABS: Urine Blood Negative /uL (Negative); Urine Clarity Clear (Clear); Urine Color Light-Yellow (Yellow); Urine Protein, UAD Negative (Negative); Urine Specific Gravity 1.037 (1.001-1.035); Urine Urobilinogen Normal (Negative); Urine WBC <1 /hpf (0 - 5)
[2024-01-31 11:07] LABS: Alanine Aminotransferase 14 U/L (7-40); Albumin 4.6 g/dL (3.2-4.8); Alkaline Phosphatase 126 U/L (46-116); Anion Gap 9 (5-15); Aspartate Aminotransferase 13 U/L (13-40); Blood Urea Nitrogen 19 mg/dL (9-23); CRP High Sensitivity 0.19 mg/dL (<1.0); Calcium 10.4 mg/dL (8.7-10.4); Carbon Dioxide 26 mmol/L (20-31); Chloride 101 mmol/L (98-107); Potassium 4.1 mmol/L (3.5-5.1); Sodium 136 mmol/L (136-145)
[2024-01-31 11:08] LABS: Bilirubin, Total 0.7 mg/dL (0.2-1.0); Total Protein 6.9 g/dL (5.7-8.2)
[2024-01-31 11:12] LABS: Free T4 (Free Thyroxine) 1.31 ng/dL (0.89-1.76)
[2024-01-31 11:20] LABS: Glucose 467 mg/dL (74-106)
[2024-01-31 11:44] LABS: Erythrocyte Sedimentation Rate 17 mm/hr (0-20)
== END | disposition home or self-care (01) ==
LOC: LAB 09:33
PROVIDERS: ATTEND Internal Medicine
DX: E11.9 Type 2 diabetes mellitus without complications (principal); I10 Essential (primary) hypertension
CPT/HCPCS: 36415; 80053; 81001; 82607; 83036; 84439; 84443; 85025; 85652; 86141